=== PATIENT | male | born 1975 | race Caucasian/White ===

== ENCOUNTER 2024-03-07 18:05 | Emergency (ER) | payer SELFPAY ==
[~2024-03-07] VITALS: Ht 180.3 cm; Wt 70.5 kg
[2024-03-07 18:13] VITALS: BP 112/86; PULSE 101; RESP 14; TEMP 98.3; O2SAT 96
== END 2024-03-07 19:18 | disposition home or self-care (01) ==
LOC: ER 18:06
DX: Z02.89 Encounter for other administrative examinations (principal); Z65.3 Problems related to other legal circumstances; V89.2XXA Person injured in unspecified motor-vehicle accident, traffic, initial encounter; Y93.89 Activity, other specified; Y92.89 Other specified places as the place of occurrence of the external cause; Y99.8 Other external cause status
CPT/HCPCS: 99283